=== PATIENT | female | born 1965 | race Hispanic/Latino ===

== ENCOUNTER 2021-09-01 07:25 | Emergency (ER) | payer SELFPAY ==
[2021-09-01 08:03] VITALS: BP 119/70
== END 2021-09-05 10:55 | disposition left against medical advice (07) ==
LOC: ED 07:25
DX: S09.90XA Unspecified injury of head, initial encounter (principal); M54.9 Dorsalgia, unspecified; Z53.21 Procedure and treatment not carried out due to patient leaving prior to being seen by health care provider; W19.XXXA Unspecified fall, initial encounter; Y93.89 Activity, other specified; Y92.89 Other specified places as the place of occurrence of the external cause; Y99.8 Other external cause status